=== PATIENT | male | born 2000 | race African-American/Black ===

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

== ENCOUNTER 2021-12-04 15:35 | Emergency (ER) | payer BC, SELFPAY ==
--- NOTE | ~2021-12-04 | XR_ITS ---
EXAMINATION: XR finger 1st RT min 2V INDICATION: Right first finger pain TECHNIQUE: Three views of the right first finger are obtained. COMPARISON: None available FINDINGS: There is tuft soft tissue swelling of the first finger. No fracture is identified. Bone ali gnment is normal. The joint spaces are maintained. IMPRESSION: 1. Soft tissue swelling without acute osseous abnormality. Reviewed, dictated and finalized at location F.
--- NOTE | 2021-12-04 15:43 | ED.UPPEXIN ---
HPI - Extremity Injury (Upper) General Chief Complaint: Extremity Injury, Upper Stated Complaint: right hand thumb injury Time Seen by Provider: 12/04/21 15:43 Source: patient Mode of arrival: ambulatory Limitations: no limitations History of Present Illness HPI narrative: 21-year-old male presents with pain to right thumb. Reports that he crushed his right thumb in car door around 8 AM today. States that he did have bleeding from the nail after injury. Took ibuprofen prior to arrival. Is concerned for fracture. Range of motion and distal neurovascularly intact. All systems reviewed and negative except as noted above. Related Data Home Medications Medication Instructions Recorded Confirmed No Home Medications 10/25/19 10/25/19 Allergies Allergy/AdvReac Type Severity Reaction Status Date / Time No Known Allergies Allergy Verified 12/04/21 15:45 Review of Systems Review of Systems: CONSTITUTIONAL: Denies fever, chills, or sweats. EYES: Denies visual changes, redness, or discharge. ENT: Denies rhinorrhea, congestion, sore throat, or otalgia. CARDIOVASCULAR: Denies chest pain, palpitations, or edema. RESPIRATORY: Denies cough or dyspnea. GASTROINTESTINAL: Denies abdominal pain, nausea, vomiting, or diarrhea. GENITOURINARY: Denies dysuria or hematuria. SKIN: Denies rash or itching. MUSCULOSKELETAL: Denies back pain, joint pain, or myalgia. Reports pain to right thumb with hematoma. NEUROLOGIC: Denies headache, numbness, or weakness. PSYCHIATRIC: Denies anxiety or depression. All other systems reviewed are negative, except as documented in HPI. [facility] Social History Social History Smoking status: Never smoker Alcohol intake: never Gender identity (if verbalized by the patient): Male Comments At time of signature, agree with nursing past medical, surgical, social and family history. There is no relevant family history pertinent to the presenting complaint. Exam Narrative: GENERAL: This is a well-nourished, well-developed patient, in no apparent distress. HEAD: normocephalic, atraumatic. EYES: PERRL. Sclera clear/white. Vision is grossly intact. EARS: External ears normal NOSE: External nose normal NECK: Neck supple, non-tender without lymphadenopathy, masses or thyromegaly. CARDIOVASCULAR: Regular rate and rhythm without murmurs, gallops, or rubs. RESPIRATORY: Clear to auscultation. Breath sounds equal bilaterally. No wheezes, rales, or rhonchi. SKIN: warm, Dry, intact with no suspicious lesions or rash, good texture and turgor. NEURO: awake, alert, and oriented to person, place and time. There were no obvious focal neurologic abnormalities. EXTREMITIES: Normal range of motion to right thumb. Tenderness to distal aspect. Small subungual hematoma noted. Small opening in nail with scant bleeding where hematoma drained. Extrem: Hand/finger images: 1. Subungual hematoma Course Course Level of Care: Express Care Visit Vital Signs Vital signs: Vital Signs Temperature 36.4 C L 12/04/21 15:44 Pulse Rate 59 L 12/04/21 15:44 Respiratory Rate 16 12/04/21 15:44 Blood Pressure 126/67 12/04/21 15:44 Pulse Oximetry 100 12/04/21 15:44 Oxygen Delivery Room Air 12/04/21 15:44 Temperature 36.4 C L 12/04/21 15:44 Pulse Rate 59 L 12/04/21 15:44 Respiratory Rate 16 12/04/21 15:44 Blood Pressure 126/67 12/04/21 15:44 Pulse Oximetry 100 12/04/21 15:44 Oxygen Delivery Room Air 12/04/21 15:44 Reviewed MDM - Extremity Injury (Upper) MDM Narrative Medical decision making narrative: Discussed x-ray results with patient. Small injury to right nail where subungual hematoma is located. Hematoma does not require drainage due to injury to nail. Nail is intact. Placed in finger splint by nuclear medicine chief technologist. Patient is aware of diagnosis, understands and agrees to treatment plan. Anticipatory guidance given. Patient agrees to follow-up as directed and is aware of damon
[2021-12-04 15:44] VITALS: BP 126/67; PULSE 59; RESP 16; TEMP 36.4; O2SAT 100
== END 2021-12-04 16:13 | disposition home or self-care (01) ==
PROVIDERS: Emergency Provider Nurse Practitioner Family; PCP Family Medicine
DX: S67.01XA Crushing injury of right thumb, initial encounter (principal); W23.0XXA Caught, crushed, jammed, or pinched between moving objects, initial encounter
CPT/HCPCS: 29130; 73140; 99213; G0463